=== PATIENT | female | born 1965 | race African-American/Black ===

== ENCOUNTER 2017-02-03 16:52 | Emergency (ER) | payer OTHER ==
[~2017-02-03] VITALS: Ht 177.8 cm; Wt 68.2 kg
[2017-02-03 17:07] LABS: GLUCOSE,POINT OF CARE 370 MG/DL (70-110)
[2017-02-03 17:20] LABS: BASOPHILS % (AUTO) 0.2 % (0.0-2.0); EOSINOPHILS % (AUTO) 1.1 % (1.0-6.0); HEMATOCRIT 46.5 % (36-46); LYMPHOCYTES # (AUTO) 3.1 K/uL (1.0-4.8); LYMPHOCYTES % (AUTO) 25.9 % (22.0-44.0); MEAN CORPUSCULAR HEMOGLOBIN 27.9 pg (26.0-34.0); MEAN CORPUSCULAR HGB CONC 32.2 G/dL (31.0-37.0); MEAN CORPUSCULAR VOLUME 87 fL (80-100); MONOCYTES # (AUTO) 0.6 K/uL (0.1-1.0); MONOCYTES % (AUTO) 5.3 % (2.0-9.0); NEUTROPHILS % (AUTO) 67.5 % (40.0-70.0); PLATELET COUNT (AUTO) 241 K/uL (150-450); RED BLOOD CELL COUNT(AUTO) 5.35 MIL/uL (4.00-5.20); RED CELL DISTRIBUTION WIDTH 14.3 % (11.5-14.5); WHITE BLOOD COUNT (AUTO) 11.8 K/uL (4.5-11.0)
[2017-02-03 17:30] LABS: ANION GAP 9 mmol/L (8-16); CALCIUM, TOTAL 8.8 mg/dL (8.8-10.5); CARBON DIOXIDE 28 mmol/L (22-29); CHLORIDE 97 mmol/L (98-107); CREATININE 0.99 mg/dL (0.60-1.30); GLOMERULAR FILTR. RATE CALC > 60 mL/min (>60); POTASSIUM 3.7 mmol/L (3.5-5.1); SODIUM SERUM 134 mmol/L (136-145); UREA NITROGEN, BLOOD 7 mg/dL (7-18)
[2017-02-03 17:36] LABS: ALANINE AMINOTRANSFERASE 30 U/L (12-78); ALBUMIN 3.2 g/dL (3.4-5.0); ASPARTATE AMINOTRANSFERASE 9 U/L (15-37)
[2017-02-03] MEDS ORDERED: SODIUM CHLORIDE 0.9% 1,000 ML IV ONE (20:45)
[2017-02-03] MEDS ORDERED: KETOROLAC TROMETHAMINE 30 MG/ML VIAL IVP ONE (20:45)
[2017-02-03] MEDS ORDERED: AMPICILLIN SODIUM/SULBACTAM NA 3 GM in SODIUM CHLORIDE 0.9% 100 ML IV ONE (20:45)
[2017-02-03] MEDS ORDERED: IOVERSOL 350 MG/ML 150 ML VIAL ONE (21:06)
[2017-02-03] MEDS ORDERED: SODIUM CHLORIDE 0.9% 100 ML ONE (21:06)
[2017-02-03] MEDS ORDERED: IOVERSOL 350 MG/ML 100 ML VIAL ONE (21:30)
[2017-02-04 01:00] VITALS: BP 119/65
[2017-02-04] MEDS ORDERED: CLINDAMYCIN HCL 150 MG CAPSULE PO ONE (01:00)
[2017-02-04] MEDS ORDERED: CLIN-78 PO (19:36)
[2017-02-04] MEDS ORDERED: HYDR-309 PO (19:36)
== END 2017-02-04 01:00 | disposition home or self-care (01) ==
LOC: EMS 16:53
DX: K04.7 Periapical abscess without sinus (principal); E11.9 Type 2 diabetes mellitus without complications; F17.200 Nicotine dependence, unspecified, uncomplicated
CPT/HCPCS: 36415; 70487; 80053; 82962; 85025; 96365; 96375; 99285; J0295; J1885; J7030; J7050; Q9967

== ENCOUNTER 2017-02-04 19:29 | Emergency (ER) | payer OTHER ==
[~2017-02-04] VITALS: Ht 160 cm; Wt 68.2 kg
[2017-02-04] MEDS ORDERED: CLIN-78 PO (19:36)
[2017-02-04] MEDS ORDERED: HYDR-309 PO (19:36)
[2017-02-04] MEDS ORDERED: HYDROCODONE/ACETAMINOPHEN 5-325 MG TABLET PO ONE (19:45)
[2017-02-04] MEDS ORDERED: AMPICILLIN SODIUM/SULBACTAM NA 1.5 GM/VIAL IM ONE (19:45)
[2017-02-04] MEDS ORDERED: CLINDAMYCIN HCL 150 MG CAPSULE PO ONE (19:45)
[2017-02-04 20:14] VITALS: BP 129/86
[2017-02-04] MEDS ORDERED: LIDOCAINE HCL/PF 1% 2 ML VIAL IM ONE (20:15)
[2017-02-04] MEDS ORDERED: INSULIN REGULAR, HUMAN 100 UNITS/ML SQ ONE (20:15)
== END 2017-02-04 20:22 | disposition home or self-care (01) ==
LOC: EMS 19:30
DX: K04.7 Periapical abscess without sinus (principal); E11.65 Type 2 diabetes mellitus with hyperglycemia; F17.200 Nicotine dependence, unspecified, uncomplicated; Z09 Encounter for follow-up examination after completed treatment for conditions other than malignant neoplasm
CPT/HCPCS: 96372; 99284; J0295; J1815; J3490; 82962

== ENCOUNTER 2017-11-29 22:50 | Emergency (ER) | payer OTHER ==
[~2017-11-29] VITALS: Ht 162.6 cm; Wt 75.0 kg
[~2017-11-29 22:50] MED LIST: CLIN300C9 PO; HYDR-309 PO
[2017-11-29] MEDS ORDERED: METF850T2 PO (23:04)
[2017-11-29] MEDS ORDERED: BP PO (23:04)
[2017-11-29] MEDS ORDERED: KETOROLAC TROMETHAMINE 30 MG/ML VIAL IM ONE (23:15)
[2017-11-30 02:05] VITALS: BP 144/81
== END 2017-11-30 02:26 | disposition home or self-care (01) ==
LOC: EMS 22:51
DX: S42.254A Nondisplaced fracture of greater tuberosity of right humerus, initial encounter for closed fracture (principal); E11.9 Type 2 diabetes mellitus without complications; F17.210 Nicotine dependence, cigarettes, uncomplicated; W19.XXXA Unspecified fall, initial encounter; Y93.89 Activity, other specified; Y92.512 Supermarket, store or market as the place of occurrence of the external cause; Y99.8 Other external cause status
CPT/HCPCS: 73030; 96372; 99284; J1885

== ENCOUNTER 2019-01-18 21:59 | Emergency (ER) | payer OTHER ==
[~2019-01-18] VITALS: Ht 162.6 cm; Wt 65.9 kg
[~2019-01-18 21:59] MED LIST changes: +BP PO; -CLIN300C9 PO; -HYDR-309 PO; +METF-445 PO
[2019-01-18] MEDS ORDERED: GLYB5 PO (22:07)
[2019-01-18] MEDS ORDERED: ASPI-1182 PO (22:07)
[2019-01-18 22:45] LABS: BASOPHILS % (AUTO) 1.3 % (0.0-2.0); EOSINOPHILS % (AUTO) 2.5 % (1.0-6.0); HEMATOCRIT 42.1 % (36-46); HEMOGLOBIN 13.8 g/dL (12.0-16.0); LYMPHOCYTES # (AUTO) 3.1 K/uL (1.0-4.8); LYMPHOCYTES % (AUTO) 40.4 % (22.0-44.0); MEAN CORPUSCULAR HEMOGLOBIN 28.3 pg (26.0-34.0); MEAN CORPUSCULAR HGB CONC 32.8 G/dL (31.0-37.0); MEAN CORPUSCULAR VOLUME 86 fL (80-100); MONOCYTES # (AUTO) 0.6 K/uL (0.1-1.0); MONOCYTES % (AUTO) 7.4 % (2.0-9.0); NEUTROPHILS # (AUTO) 3.7 K/uL (1.8-7.7); NEUTROPHILS % (AUTO) 48.4 % (40.0-70.0); PLATELET COUNT (AUTO) 287 K/uL (150-450); RED BLOOD CELL COUNT(AUTO) 4.88 MIL/uL (4.00-5.20); RED CELL DISTRIBUTION WIDTH 14.6 % (11.5-14.5)
[2019-01-18 22:57] LABS: CALCIUM, TOTAL 9.4 mg/dL (8.8-10.5); CREATININE 1.21 mg/dL (0.60-1.30); POTASSIUM 3.3 mmol/L (3.5-5.1)
[2019-01-18 23:04] LABS: ALBUMIN 3.5 g/dL (3.4-5.0); BILIRUBIN,TOTAL 0.5 mg/dL (0.1-1.0); TOTAL PROTEIN, SERUM 7.6 g/dL (6.4-8.2)
[2019-01-19 02:50] VITALS: BP 121/77
[2019-01-19 09:10] LABS: GLUCOSE,POINT OF CARE 375 MG/DL (70-110)
== END 2019-01-19 03:21 | disposition home or self-care (01) ==
LOC: EMS 22:00
DX: R10.9 Unspecified abdominal pain (principal); R93.5 Abnormal findings on diagnostic imaging of other abdominal regions, including retroperitoneum; E11.9 Type 2 diabetes mellitus without complications; E78.00 Pure hypercholesterolemia, unspecified; I10 Essential (primary) hypertension; F17.210 Nicotine dependence, cigarettes, uncomplicated; Z79.84 Long term (current) use of oral hypoglycemic drugs; Z79.82 Long term (current) use of aspirin
CPT/HCPCS: 74176; 85379

== ENCOUNTER 2019-12-23 09:16 | Emergency (ER) | payer OTHER ==
[~2019-12-23] VITALS: Ht 162.6 cm; Wt 61.4 kg
[~2019-12-23 09:16] MED LIST changes: +ASPI-1111 PO; -BP PO; +GLYB5 PO
[2019-12-23] MEDS ORDERED: LISI-662 PO (09:44)
[2019-12-23] MEDS ORDERED: ATOR40TA28 PO (09:44)
[2019-12-23] MEDS ORDERED: ALOG25TA PO (09:44)
[2019-12-23 09:52] LABS: GLUCOSE,POINT OF CARE 255 MG/DL (70-110)
[2019-12-23] MEDS ORDERED: KETOROLAC TROMETHAMINE 30 MG/ML VIAL IVP ONE (10:00)
[2019-12-23] MEDS ORDERED: SODIUM CHLORIDE 0.9% 1,000 ML IV ONE (10:00)
[2019-12-23] MEDS ORDERED: ACETAMINOPHEN 500 MG TABLET PO ONE (10:00)
[2019-12-23] MEDS ORDERED: LIDOCAINE 5% TRANSDERMAL PATCH TD ONE (10:00)
[2019-12-23 10:13] LABS: BASOPHILS % (AUTO) 1.2 % (0.0-2.0); EOSINOPHILS % (AUTO) 0.9 % (1.0-6.0); HEMATOCRIT 43.7 % (36-46); HEMOGLOBIN 14.4 g/dL (12.0-16.0); LYMPHOCYTES # (AUTO) 1.6 K/uL (1.0-4.8); LYMPHOCYTES % (AUTO) 27.8 % (22.0-44.0); MEAN CORPUSCULAR HEMOGLOBIN 28.5 pg (26.0-34.0); MEAN CORPUSCULAR VOLUME 86 fL (80-100); MONOCYTES # (AUTO) 0.6 K/uL (0.1-1.0); MONOCYTES % (AUTO) 10.1 % (2.0-9.0); NEUTROPHILS # (AUTO) 3.5 K/uL (1.8-7.7); PLATELET COUNT (AUTO) 243 K/uL (150-450); RED BLOOD CELL COUNT(AUTO) 5.08 MIL/uL (4.00-5.20); RED CELL DISTRIBUTION WIDTH 15.2 % (11.5-14.5)
[2019-12-23 10:28] LABS: ANION GAP 8 mmol/L (8-16); CALCIUM, TOTAL 9.2 mg/dL (8.8-10.5); CARBON DIOXIDE 28 mmol/L (22-29); CHLORIDE 100 mmol/L (98-107); CREATININE 0.78 mg/dL (0.60-1.30); GLOMERULAR FILTR. RATE CALC > 60 mL/min (>60); GLUCOSE,RANDOM 226 mg/dL (70-110); POTASSIUM 3.3 mmol/L (3.5-5.1); SODIUM SERUM 136 mmol/L (136-145); UREA NITROGEN, BLOOD 8 mg/dL (7-18)
[2019-12-23 10:29] LABS: ALANINE AMINOTRANSFERASE 19 U/L (12-78); ALBUMIN 3.2 g/dL (3.4-5.0); ALKALINE PHOSPHATASE 135 U/L (46-116); ASPARTATE AMINOTRANSFERASE 10 U/L (15-37); BILIRUBIN,TOTAL 0.6 mg/dL (0.1-1.0); CREATINE KINASE, TOTAL ONLY 66 U/L (26-192); TOTAL PROTEIN, SERUM 7.8 g/dL (6.4-8.2)
[2019-12-23] MEDS ORDERED: MAGNESIUM SULFATE 2 GM/WATER 50 ML IV ONE (11:15)
[2019-12-23 12:19] VITALS: BP 148/87
[2019-12-23 12:22] LABS: INFLUENZA TYPE A NEGATIVE FOR TYPE A (NEGATIVE); INFLUENZA TYPE B NEGATIVE FOR TYPE B (NEGATIVE)
[2019-12-23 12:43] LABS: APPEARANCE,URINE CLOUDY (CLEAR); BILIRUBIN,URINE NEGATIVE (NEGATIVE); GLUCOSE, URINE (UA) >=1000 mg/dL (NEGATIVE); KETONES,URINE NEGATIVE (NEGATIVE); LEUKOCYTE ESTERASE ,URINE SMALL (NEGATIVE); NITRATE,URINE NEGATIVE (NEGATIVE); OCCULT BLOOD,URINE NEGATIVE (NEGATIVE); PH,URINE 5.5 (5.0-8.0); PROTEIN,URINE TRACE (NEGATIVE); UROBILINOGEN,URINE 0.2 mg/dL (<=1.0)
[2019-12-23 13:06] LABS: BACTERIA,URINE Many /HPF (None Seen); RBC,URINE 0-2 /HPF (0-2); SQUAMOUS EPITHELIAL CELL,UR Many /LPF (None Seen)
== END 2019-12-23 13:36 | disposition home or self-care (01) ==
LOC: EMS 09:16
DX: J11.1 Influenza due to unidentified influenza virus with other respiratory manifestations (principal); E83.42 Hypomagnesemia; M79.10 Myalgia, unspecified site; E11.9 Type 2 diabetes mellitus without complications; I10 Essential (primary) hypertension; E78.00 Pure hypercholesterolemia, unspecified; F17.210 Nicotine dependence, cigarettes, uncomplicated; Z79.82 Long term (current) use of aspirin; Z79.899 Other long term (current) drug therapy; Z79.84 Long term (current) use of oral hypoglycemic drugs
CPT/HCPCS: 36415; 71046; 80053; 81001; 82550; 82962; 83735; 85025; 87086; 87804; 96365; 96366; 96375; 99284; J1885; J3475; J7030